=== PATIENT | male | born 1970 | race Caucasian/White ===

== ENCOUNTER 2018-08-27 11:15 | Day surgery (SDC) | payer BC ==
[~2018-08-27] VITALS: Ht 177.8 cm; Wt 98.0 kg
[~2018-08-27 11:15] MED LIST: IBUP-1623 PO; LIDOCAINE 1%-EPI 1:100K, 20ML ONE; RANI150C PO; ROPIvacaine/PF 0.5%, 30 ML ONE
[2018-08-27] MEDS ORDERED: LACTATED RINGERS 1,000 ML IV SCH (11:27)
[2018-08-27] MEDS ORDERED: LIDOCAINE-MPF 1%, 2ML INFIL ONE (11:30)
[2018-08-27 11:33] VITALS: BP 142/89
[2018-08-27] MEDS ORDERED: MIDAZOLAM 1 MG/ML, 2ML ONE (12:09)
[2018-08-27] MEDS ORDERED: FENTANYL PF 100 MCG/2ML ONE ×2 (12:09→13:05)
[2018-08-27] MEDS ORDERED: FENTANYL PF 250 MCG/5ML ONE (12:19)
[2018-08-27] MEDS ORDERED: DEXAMETHASONE 4 MG/ML, 1ML ONE (12:21)
[2018-08-27] MEDS ORDERED: CEFAZOLIN 1,000 MG ONE (12:21)
[2018-08-27] MEDS ORDERED: PROPOFOL 10 MG/ML, 20ML ONE (12:21)
[2018-08-27] MEDS ORDERED: ONDANSETRON 2MG/ML, 2ML ONE (12:21)
[2018-08-27] MEDS ORDERED: LABETALOL 5MG/ML, 20ML IV PRN (12:30)
[2018-08-27] MEDS ORDERED: hydrALAzine 20 MG/ML, 1ML IV PRN (12:30)
[2018-08-27] MEDS ORDERED: ACETAMINOPHEN 325 MG TABLET PO PRN (12:30)
[2018-08-27] MEDS ORDERED: OXYcodone 5 MG/5 ML ORAL.SOL UDC PO PRN (12:30)
[2018-08-27] MEDS ORDERED: ONDANSETRON ODT 8 MG PO PRN (12:30)
[2018-08-27] MEDS ORDERED: ONDANSETRON 2MG/ML, 2ML IV PRN (12:30)
[2018-08-27] MEDS ORDERED: MEPERIDINE/PF 25MG/0.5ML IVPush PRN (12:30)
[2018-08-27] MEDS ORDERED: LORazepam 2 MG/ML, 1ML IVPush PRN (12:30)
[2018-08-27] MEDS ORDERED: OXYcodone 5 MG/5 ML ORAL.SOL UDC ONE (13:05)
[2018-08-27] MEDS: FENTANYL PF 100 MCG/2ML IV PRN ×2 (13:08→13:19)
[2018-08-27] MEDS ORDERED: HYDROmorphone 2 MG/ML, 1ML ONE (13:09)
[2018-08-27] MEDS: HYDROmorphone 2 MG/ML, 1ML IVPush PRN ×2 (13:12→13:25)
== END 2018-08-27 15:25 | disposition home or self-care (01) ==
LOC: OUT 11:15
PROVIDERS: ATTEND Orthopaedic Surgery
DX: S83.282A Other tear of lateral meniscus, current injury, left knee, initial encounter (principal); S83.242A Other tear of medial meniscus, current injury, left knee, initial encounter; M94.262 Chondromalacia, left knee; I10 Essential (primary) hypertension; X58.XXXA Exposure to other specified factors, initial encounter; Y93.89 Activity, other specified; Y92.89 Other specified places as the place of occurrence of the external cause; Y99.8 Other external cause status
CPT/HCPCS: 29880; J0690; J1100; J1170; J2250; J2405; J2704; J2795; J3010; J3490; J7120